=== PATIENT | male | born 1965 | race Caucasian/White ===

== ENCOUNTER 2021-08-26 12:26 | Emergency (ER) | payer OTHER ==
[2021-08-26] MEDS ORDERED: Acetaminophen/HYDROcodone 325-10 MG Tab PO ONE (13:28)
--- NOTE | 2021-08-26 13:28 | EDM.PDOC ---
ED HPI GENERAL MEDICAL PROBLEM - General Chief Complaint: Lower Extremity Injury/Pain Stated Complaint: left knee/foot pain Time Seen by Provider: 08/26/21 12:35 Source of Information: Reports: Patient History Limitations: Reports: No Limitations - History of Present Illness INITIAL COMMENTS - FREE TEXT/NARRATIVE: Dixon is a 56 year old male who presents to ER with complaints of left knee and foot pain. Was in an area of his house that they are remodeling. Have a large cistern hole in this area and was walking and looking up to check areas of the ceiling and fell through the cistern hole. States right leg went through first and left leg went out from behind him and through. Did catch himself from falling all the way through and was able to work his way out of the hole. [place] a pop in his left knee and is now having more pain in his left foot and great toe. Feels like that got stuck under him. Is able to bear weight but has pain doing so. Onset: Today, Sudden Duration: Minutes:, Constant Location: Reports: Lower Extremity, Left Quality: Reports: Throbbing Severity: Moderate Improves with: Reports: Rest Worsens with: Reports: Movement Context: Reports: Trauma Associated Symptoms: Reports: No Other Symptoms Left Foot Pain Score (Numeric/FACES): 7 Left Knee Pain Score (Numeric/FACES): 7 - Related Data Allergies Allergy/AdvReac Type Severity Reaction Status Date / Time No Known Allergies Allergy Verified 08/26/21 12:43 Home Meds: Home Meds Omeprazole 20 mg PO DAILY 08/26/21 [History] Past Medical History HEENT History: Reports: Allergic Rhinitis Gastrointestinal History: Reports: GERD Social & Family History - Tobacco Use Tobacco Use Status *Q: Never Tobacco User Review of Systems - Review of Systems Review Of Systems: See Below Constitutional: Reports: No Symptoms Eyes: Reports: No Symptoms Ears: Reports: No Symptoms Nose: Reports: No Symptoms Mouth/Throat: Reports: No Symptoms Respiratory: Reports: No Symptoms Cardiovascular: Reports: No Symptoms GI/Abdominal: Reports: No Symptoms Musculoskeletal: Reports: Leg Pain, Foot Pain, Joint Pain Skin: Reports: Bruising, Erythema, Other (abrasion to right foot) Neurological: Reports: No Symptoms Psychiatric: Reports: No Symptoms ED EXAM, GENERAL - Physical Exam Exam: See Below Exam Limited By: No Limitations General Appearance: Alert, WD/WN, No Apparent Distress Neck: Normal Inspection, Supple, Non-Tender Respiratory/Chest: No Respiratory Distress, Lungs Clear, Normal Breath Sounds Cardiovascular: Regular Rate, Rhythm Extremities: Limited Range of Motion (swelling noted to distal lateral quadricep muscle. Pain to lateral knee. Left foot noted to be erythemous. Tender to foot with palpation. Does have good flexion and extension of foot however increases pain), Other (abrasions noted to right foot. Nontender. ) Neurological: Alert, Oriented Skin Exam: Warm, Dry Course - Vital Signs Last Recorded V/S: Last Vital Signs Temp 98.0 F 08/26/21 12:30 Pulse 69 08/26/21 12:30 Resp 18 08/26/21 12:30 BP 147/90 H 08/26/21 12:30 Pulse Ox 99 08/26/21 12:30 - Orders/Labs/Meds Meds: Medications Discontinued Medications Generic Name Dose Route Start Last Admin Trade Name Freq PRN Reason Stop Dose Admin Hydrocodone Bitart/Acetaminophen 1 tab 08/26/21 13:28 08/26/21 13:34 Acetaminophen/Hydrocodone 325-10 Mg Tab PO 08/26/21 13:29 1 tab ONETIME ONE Administration - Re-Assessments/Exams Free Text/Narrative Re-Assessment/Exam: 08/26/21 13:56 Xrays are negative. Knee immobilizer placed to left knee. Will arrange for MRI on Sunday with follow up by Kevin Alexander. Departure - Departure Time of Disposition: 13:57 Disposition: Home, Self-Care 01 Condition: Fair Clinical Impression: Knee joint injury, Strain of foot, left - Discharge Information *PRESCRIPTION DRUG MONITORING PROGRAM REVIEWED*: No *COPY OF PRESCRIPTION DRUG MONITORING REPORT IN PATIENT MOHIT: No Instructions: Knee Sprain, Adult, [id number], Foot Sprain Referrals: Adrian Gilliland MD [Primary Care Provider] - Forms: ED Department Discharge Additional Instructions: 1. Elevate leg to reduce swelling frequently today and tomorrow 2. Ice to knee and foot every 2 hours 3. Ibuprofen 600 mg every 6 hours for pain and swelling 4. Bimble 1 tab every 6 hours as needed for more severe pain 5. MRI on Sunday. Await results from Kevin Alexander for further treatment/recomm endations. Sepsis Event Note (ED) - Focused Exam Vital Signs: Vital Signs Temp Pulse Resp BP Pulse Ox 08/26/21 12:30 98.0 F 69 18 147/90 H 99
--- NOTE | 2021-08-26 13:31 | CR ---
[id number] RAD/RAD Knee Left 3V EXAM: 3 VIEWS LEFT KNEE. INDICATION: FALL. COMPARISON: None. DISCUSSION: No fracture, dislocation or other acute osseous abnormality. Mild tricompartmental degenerative changes of the left knee. IMPRESSION: 1. No acute osseous abnormalities. Roger Valdez DO 08/26/21 [id number] Thank you for allowing us to participate in the care of your patient.
--- NOTE | 2021-08-26 13:50 | CR ---
[id number] RAD/RAD Foot Left 2V EXAM: RAD Foot Left 2V CLINICAL DATA: 1ST METATARSAL PAIN COMPARISON: No previous similar exam is available. FINDINGS: No fracture or dislocation is seen. There is no radiopaque foreign body in the soft tissues. There is no air in the soft tissues. There is no cortical thickening or periosteal reaction either. IMPRESSION: NEGATIVE PLAIN FILM EXAM. Lan Haas MD 08/26/21 [id number] Thank you for allowing us to participate in the care of your patient.
== END 2021-08-26 14:10 | disposition home or self-care (01) ==
LOC: VM.ED 12:26
DX: S86.812A Strain of other muscle(s) and tendon(s) at lower leg level, left leg, initial encounter (principal); K21.9 Gastro-esophageal reflux disease without esophagitis; Z79.899 Other long term (current) drug therapy; W18.39XA Other fall on same level, initial encounter
CPT/HCPCS: 73562; 73620; 99283; A9270

== ENCOUNTER 2022-01-14 14:33 | Emergency (ER) | payer OTHER ==
[2022-01-14] MEDS ORDERED: Triamcinolone Acetonide 40 MG/ML 1 ML SDV INJECT ONE (15:01)
[2022-01-14] MEDS ORDERED: Take Home: Amoxicillin/Clavulanate K 875-125 MG Tab, 2 Tab Pack PO ONE (15:01)
== END 2022-01-14 15:45 | disposition home or self-care (01) ==
LOC: VM.ED 14:33
DX: J30.9 Allergic rhinitis, unspecified (principal); J32.9 Chronic sinusitis, unspecified; K21.9 Gastro-esophageal reflux disease without esophagitis; Z79.899 Other long term (current) drug therapy
CPT/HCPCS: 99283; A9270-GY; J3301

== ENCOUNTER 2023-04-01 06:42 | Emergency (ER) | payer OTHER ==
[2023-04-01] MEDS ORDERED: Take Home: Doxycycline 100 MG Cap, 4 Cap Pack PO ONE (07:07)
== END 2023-04-01 07:28 | disposition home or self-care (01) ==
LOC: VM.ED 06:42
DX: S40.861A Insect bite (nonvenomous) of right upper arm, initial encounter (principal); L08.9 Local infection of the skin and subcutaneous tissue, unspecified; K21.9 Gastro-esophageal reflux disease without esophagitis; Z79.899 Other long term (current) drug therapy; W57.XXXA Bitten or stung by nonvenomous insect and other nonvenomous arthropods, initial encounter
CPT/HCPCS: 99281; 99283; A9270-GY

== ENCOUNTER 2023-10-03 19:41 | Emergency (ER) | payer OTHER ==
[2023-10-03] MEDS ORDERED: Lisinopril 10 MG Tab PO ONE ×2 (20:09→20:10)
[2023-10-03 20:20] LABS: BASOPHILS PERCENT AUTO 0.3 % (0.2-1.2); EOSINOPHILS ABSOLUTE AUTO 0.1 x10^3/uL (0.0-0.5); HEMATOCRIT 40.2 % (40.0-52.0); HEMOGLOBIN 13.9 g/dL (14.0-18.0); LYMPHOCYTES ABSOLUTE AUTO 2.7 x10^3/uL (1.0-4.8); MEAN CORPUSCULAR HEMOGLOBIN 31.7 pg (26.0-32.0); MEAN CORPUSCULAR HGB CONC 34.6 g/dL (32.0-36.0); MEAN CORPUSCULAR VOLUME 91.6 fL (78.0-93.0); MONOCYTES ABSOLUTE AUTO 0.6 x10^3/uL (0.0-0.8); MONOCYTES PERCENT AUTO 9.5 % (2.0-11.0); NEUTROPHILS ABSOLUTE AUTO 2.7 x10^3/uL (1.8-7.7); NEUTROPHILS PERCENT AUTO 44.2 % (50.0-80.0); PLATELET COUNT,PLT 130 x10^3/uL (130-400); RED BLOOD CELL COUNT 4.39 x10^6/uL (4.5-6.0); WHITE BLOOD CELL COUNT,WBC 6.1 x10^3/uL (4.0-10.0)
[2023-10-03 20:39] LABS: A/G RATIO 1.09; ALBUMIN 3.7 g/dL (3.4-5.0); ANION GAP 14.5 mmol/L (5-15); BILIRUBIN TOTAL 0.2 mg/dL (0.2-1.0); CALCIUM 8.6 mg/dL (8.5-10.1); CREATININE 0.9 mg/dL (0.70-1.30); POTASSIUM,K 3.5 mmol/L (3.5-5.1); PROTEIN TOTAL,TP 7.1 g/dL (6.4-8.2)
== END 2023-10-03 20:56 | disposition home or self-care (01) ==
LOC: VM.ED 19:41
DX: I10 Essential (primary) hypertension (principal); K21.9 Gastro-esophageal reflux disease without esophagitis; Z79.899 Other long term (current) drug therapy; Y92.89 Other specified places as the place of occurrence of the external cause
CPT/HCPCS: 36415; 80053; 84484; 85025; 93005; 93010; 99283; 99284; A9270

== ENCOUNTER 2024-03-08 16:25 | Emergency (ER) | payer OTHER ==
[2024-03-08] MEDS: oxyCODONE 5 MG Tab PO ONE (17:58)
[2024-03-08 18:22] LABS: BASOPHILS PERCENT AUTO 0.7 % (0.2-1.2); EOSINOPHILS ABSOLUTE AUTO 0.1 x10^3/uL (0.0-0.5); EOSINOPHILS PERCENT AUTO 1.2 % (0.0-4.0); HEMATOCRIT 42.4 % (40.0-52.0); IMMATURE GRAN ABSOLUTE AUTO 0.06 x10^3/uL (0.00-0.07); LYMPHOCYTES ABSOLUTE AUTO 1.6 x10^3/uL (1.0-4.8); LYMPHOCYTES PERCENT AUTO 26.8 % (25.0-50.0); MEAN CORPUSCULAR HEMOGLOBIN 33.2 pg (26.0-32.0); MEAN CORPUSCULAR HGB CONC 35.4 g/dL (32.0-36.0); MEAN CORPUSCULAR VOLUME 93.8 fL (78.0-93.0); MONOCYTES ABSOLUTE AUTO 0.4 x10^3/uL (0.0-0.8); MONOCYTES PERCENT AUTO 7.1 % (2.0-11.0); NEUTROPHILS ABSOLUTE AUTO 3.8 x10^3/uL (1.8-7.7); NEUTROPHILS PERCENT AUTO 63.2 % (50.0-80.0); PLATELET COUNT,PLT 112 x10^3/uL (130-400); RED BLOOD CELL COUNT 4.52 x10^6/uL (4.5-6.0); WHITE BLOOD CELL COUNT,WBC 5.9 x10^3/uL (4.0-10.0)
[2024-03-08 18:44] LABS: BLOOD UREA NITROGEN,BUN 14 mg/dL (7-18); CALCIUM 8.6 mg/dL (8.5-10.1); CARBON DIOXIDE,CO2 26 mmol/L (21-32); CHLORIDE,CL 101 mmol/L (98-107); CREATININE 1.1 mg/dL (0.70-1.30); GLUCOSE RANDOM 168 mg/dL (70-99); POTASSIUM,K 3.7 mmol/L (3.5-5.1); SODIUM,NA 138 mmol/L (136-145)
[2024-03-08 18:45] LABS: ANION GAP 14.7 mmol/L (5-15); ESTIMATED GFR 77 mL/min (>=60)
[2024-03-08] MEDS: predniSONE 20 MG Tab PO ONE (19:13)
[2024-03-08] MEDS: Take Home: predniSONE 20 MG, 2 Tab Pack PO ONE (19:27)
[2024-03-08] MEDS: Take Home: Acetaminophen/oxyCODONE 325-5 MG, 5 Tab Pack PO ONE (19:27)
[2024-03-08] MEDS: Take Home: Ondansetron 4 MG Tab.DIS, 5 Tab Pack PO ONE (19:27)
== END 2024-03-08 19:27 | disposition home or self-care (01) ==
LOC: VM.ED 16:25
DX: L40.50 Arthropathic psoriasis, unspecified (principal); R06.02 Shortness of breath; R11.0 Nausea; K21.9 Gastro-esophageal reflux disease without esophagitis; Z79.899 Other long term (current) drug therapy
CPT/HCPCS: 36415; 71046; 80048; 84484; 85025; 93005; 99285; A9270; J7512; Q0162; 93010; 99284

== ENCOUNTER 2024-05-23 03:30 | Emergency (ER) | payer OTHER ==
[2024-05-23] MEDS: Take Home: Acetaminophen/HYDROcodone 325-5 MG, 5 Tab Pack PO ONE (04:15)
== END 2024-05-23 04:20 | disposition home or self-care (01) ==
LOC: VM.ED 03:30
DX: M54.50 Low back pain, unspecified (principal); M79.661 Pain in right lower leg; K21.9 Gastro-esophageal reflux disease without esophagitis; Z79.899 Other long term (current) drug therapy; Z79.51 Long term (current) use of inhaled steroids
CPT/HCPCS: 99283; A9270-GY

== ENCOUNTER 2024-07-10 11:11 | Emergency (ER) | payer OTHER ==
[2024-07-10 11:58] LABS: BASOPHILS PERCENT AUTO 0.4 % (0.2-1.2); EOSINOPHILS ABSOLUTE AUTO 0.1 x10^3/uL (0.0-0.5); EOSINOPHILS PERCENT AUTO 0.8 % (0.0-4.0); HEMATOCRIT 42.1 % (40.0-52.0); HEMOGLOBIN 14.3 g/dL (14.0-18.0); IMMATURE GRAN ABSOLUTE AUTO 0.15 x10^3/uL (0.00-0.07); LYMPHOCYTES ABSOLUTE AUTO 3.2 x10^3/uL (1.0-4.8); MEAN CORPUSCULAR HEMOGLOBIN 30.6 pg (26.0-32.0); MEAN CORPUSCULAR VOLUME 90.1 fL (78.0-93.0); MONOCYTES ABSOLUTE AUTO 0.9 x10^3/uL (0.0-0.8); MONOCYTES PERCENT AUTO 9.3 % (2.0-11.0); NEUTROPHILS ABSOLUTE AUTO 5.5 x10^3/uL (1.8-7.7); PLATELET COUNT,PLT 161 x10^3/uL (130-400); RED BLOOD CELL COUNT 4.67 x10^6/uL (4.5-6.0); WHITE BLOOD CELL COUNT,WBC 9.9 x10^3/uL (4.0-10.0)
[2024-07-10 12:00] LABS: APPEARANCE,URINE CLEAR (CLEAR); BILIRUBIN,URINE NEGATIVE (NEGATIVE); COLOR,URINE YELLOW (YELLOW); GLUCOSE,URINE NEGATIVE (NEGATIVE); KETONES,URINE NEGATIVE (NEGATIVE); LEUKOCYTE ESTERASE,URINE NEGATIVE (NEGATIVE); NITRITE,URINE NEGATIVE (NEGATIVE); OCCULT BLOOD,URINE NEGATIVE (NEGATIVE); PH,URINE 5.5 (5.0-8.0); PROTEIN,URINE NEGATIVE (NEGATIVE); UROBILINOGEN,URINE 0.2 EU/dL (0.2)
[2024-07-10 12:20] LABS: ALBUMIN 3.7 g/dL (3.4-5.0); BILIRUBIN TOTAL 0.6 mg/dL (0.2-1.0); CALCIUM 8.4 mg/dL (8.5-10.1); CREATININE 1.1 mg/dL (0.70-1.30); EST CRCL DRUG DOSING (CG) 79.36 mL/min; PROTEIN TOTAL,TP 7.4 g/dL (6.4-8.2)
[2024-07-10 12:35] LABS: CORONAVIRUS COVID-19 NAA NEGATIVE (NEGATIVE); INFLUENZA A NAA NEGATIVE (NEGATIVE)
[2024-07-10 12:36] LABS: INFLUENZA B NAA NEGATIVE (NEGATIVE); RESPIRATORY SYNCYTIAL VIR NAA NEGATIVE (NEGATIVE)
[2024-07-10] MEDS: Albuterol/Ipratropium 3.0-0.5 MG/3 ML Neb Soln NEB ONE (13:04)
[2024-07-10] MEDS: Iopamidol 755 Mg/ML 100 ML Bottle IVPUSH ONE (14:10)
[2024-07-10 18:31] VITALS: BP 129/87; PULSE 85
== END 2024-07-10 18:02 | disposition short-term general hospital (02) ==
LOC: VM.ED 11:11
DX: R09.02 Hypoxemia (principal); I10 Essential (primary) hypertension; K21.9 Gastro-esophageal reflux disease without esophagitis; Z79.899 Other long term (current) drug therapy
CPT/HCPCS: 0241U; 36415; 71046; 71275; 80053; 81003; 83605; 84484; 85025; 93005; 93010; 99284; 99285; J7620-GY; Q9967